=== PATIENT | female | born 1990 | race Caucasian/White ===

== ENCOUNTER 2023-01-27 09:27 | Day surgery (SDC) | payer OTHER ==
[2023-01-25 16:45] LABS: BASOPHILS % (AUTO) 0.4 % (0-1); EOSINOPHILS # (AUTO) 0.1 X10'3 (0-0.9); EOSINOPHILS % (AUTO) 0.8 % (0-6); LYMPHOCYTES # (AUTO) 2.3 X10'3 (1.1-4.8); LYMPHOCYTES % (AUTO) 24.2 % (21-51); MEAN CORPUSCULAR HEMOGLOBIN 28.8 PG (27.0-31.0); MEAN CORPUSCULAR HGB CONC 34.3 g/dL (33.0-36.5); MEAN CORPUSCULAR VOLUME 83.9 FL (78-98); MEAN PLATELET VOLUME 7.4 FL (7.4-10.4); MONOCYTES # (AUTO) 0.6 X10'3 (0-0.9); MONOCYTES % (AUTO) 6.4 % (2-12); NEUTROPHILS # (AUTO) 6.5 X10'3 (1.8-7.7); NEUTROPHILS % (AUTO) 68.2 % (42-75); PRE OP HEMOGLOBIN 13.7 g/dL (12.0-16.0); PRE OP PLATELET COUNT 304 X10'3 (140-440); RED BLOOD COUNT 4.76 X10'6 (4.20-5.60); RED CELL DISTRIBUTION WIDTH 13.9 % (11.5-14.5)
[2023-01-25 16:48] LABS: CLARITY,URINE CLEAR (Clear); COLOR,URINE YELLOW (Yellow); GLUCOSE, URINE NEGATIVE (Neg); KETONES,URINE NEGATIVE (Neg); LEUKOCYTE ESTERASE ,URINE NEGATIVE (Neg); NITRITES, URINE NEGATIVE (Neg); OCCULT BLOOD,URINE TRACE-INTACT (Neg); PH,URINE 5.5 (4.8-8.0); PROTEIN,URINE NEGATIVE (Neg); UROBILINOGEN,URINE 0.2 E.U/dL (0.2-1.0)
[2023-01-25 16:57] LABS: ALBUMIN 3.8 G/DL (3.4-5.0); ALKALINE PHOSPHATASE 77 IU/L (46-116); BLOOD UREA NITROGEN 10 MG/DL (7-18); BUN/CREATININE RATIO 15.9 (10.0-20.0); CALCIUM 8.9 MG/DL (8.5-10.1); CHLORIDE 104 MMOL/L (99-107); CREATININE 0.63 MG/DL (0.40-0.90); PRE OP ALT 58 U/L (30-65); PRE OP ANION GAP 8 (8-16); PRE OP AST 21 U/L (10-37); PRE OP BILIRUB, TOTAL 0.2 MG/DL (0.0-1.0); PRE OP GLUCOSE 93 MG/DL (70-104); PRE OP POTASSIUM 3.6 MMOL/L (3.4-5.1); PRE OP SODIUM 136 MMOL/L (135-145); TOTAL CARBON DIOXIDE 23.9 MMOL/L (24-32); TOTAL PROTEIN 7.6 G/DL (6.4-8.2); UA COLLECTION TYPE CLN CATCH MIDSTREAM; eGFR > 90 ML/MIN
[2023-01-25 16:58] LABS: BACTERIA,URINE NONE SEEN /HPF (Neg); RBC,URINE 0-2 /HPF (0-2); SQUAMOUS EPITHELIAL CELL,UR FEW /LPF (FEW); WBC,URINE 0-4 /HPF (0-4)
[~2023-01-27] VITALS: Ht 172.7 cm; Wt 114.6 kg
[2023-01-27] VITALS (7 sets, daily range): BP systolic 120–151; BP diastolic 62–91
[~2023-01-27 09:27] MED LIST: BLAC40CA PO; GENTAMICIN IV ONE; MULT-1085 PO; NORMAL SALINE IV ONE; ST.300TA4 PO; clindamycin-Cleocin 900mg/D5W 50 ML IV ONE; famotidine 20mg tablet PO ONE; ringers solution, lacted 1,000 ML IV SCH
[2023-01-27] MEDS ORDERED: ringers solution, lacted 1,000 ML IV SCH (09:30)
[2023-01-27] MEDS ORDERED: meperidine/PF 25mg/ml syringe IV PRN ×2 (09:30)
[2023-01-27] MEDS ORDERED: morphine 2 MG/ML inj. syringe IV PRN (09:30)
[2023-01-27] MEDS ORDERED: morphine 4 MG/ML inj SYRINge IV PRN (09:30)
[2023-01-27] MEDS ORDERED: ondansetron/PF 4mg/2ml inj IV PRN (09:30)
[2023-01-27] MEDS ORDERED: proCHLORperazine 10 MG/2 ml inj IV PRN (09:30)
[2023-01-27] MEDS ORDERED: dexamethasone sod phosphate 10mg/ml inj ONE (11:48)
[2023-01-27] MEDS ORDERED: sevoflurane 250ml liquid IH ONE (11:48)
[2023-01-27] MEDS ORDERED: midazolam 1 mg/ML 2ml injection ONE (11:57)
[2023-01-27] MEDS ORDERED: fentaNYL/PF 50MCG/1 ML 2ML syringe ONE (11:57)
[2023-01-27] MEDS ORDERED: propofol inj 20 ML IV ONE (11:59)
[2023-01-27] MEDS ORDERED: LIDOcaine 2% (20mg/ml) 5ml vial ONE (11:59)
[2023-01-27] MEDS ORDERED: ondansetron/PF 4mg/2ml inj ONE (12:20)
[2023-01-27] MEDS ORDERED: acetaminophen 1,000mg/100ml IV 100 ML IV ONE (12:22)
--- NOTE | 2023-01-27 12:33 | NUR ---
Received from OR via [facility], accompanied by Anesthesiologist and report given by [facility] Anesthesiologist. PATIENT WAKING UP, NO S/S OF PAIN, V/S WNL, 20G TO RIGHT HAND. ASIA PAD IS C/D/I. PT RESTING COMFORTABLY. WILL CONTINUE TO ASSESS. Addendum: 01/27/23 at 1316 by Odilon Martínez RN Amended: Links added.
[2023-01-27] MEDS: meperidine/PF 25mg/ml syringe IV PRN ×2 (12:46→13:07)
--- NOTE | 2023-01-27 13:28 | NUR ---
ALL DISCHARGE CRITERIA HAS BEEN MET. VSS, PAIN AT A TOLERABLE LEVEL, ABLE TO SAFELY AMBULATE AND TRANSFER SELF. IV TAKEN OUT WITHOUT ANY COMPLICATIONS. ALL DISCHARGE INSTRUCTIONS COVERED WITH PATIENT AND ALL QUESTIONS ANSWERED. PATIENT TAKEN OUT VIA WHEELCHAIR WITH ALL BELONGINGS TO PERSONAL VEHICLE WHERE FAMILY DROVE PATIENT HOME.
== END 2023-01-27 13:28 | disposition home or self-care (01) ==
LOC: PRE-OP 09:27
PROVIDERS: ATTEND Obstetrics & Gynecology Obstetrics
DX: O03.4 Incomplete spontaneous abortion without complication (principal); F41.1 Generalized anxiety disorder; G47.30 Sleep apnea, unspecified; Z88.0 Allergy status to penicillin; E66.01 Morbid (severe) obesity due to excess calories; Z68.38 Body mass index [BMI] 38.0-38.9, adult; Z98.890 Other specified postprocedural states; Z79.899 Other long term (current) drug therapy; Z86.16 Personal history of COVID-19
CPT/HCPCS: 36415; 59812; 80053; 81001; 85025; 86885; 86900; 86901; 93005; J0131; J1580; J2175; J2250; J2405; J2704; J3010; J3490; J7120; Z7506; Z7512; A4618; A6258; A7000; J1100